=== PATIENT | male | born 1965 | race Caucasian/White ===

== ENCOUNTER 2017-02-17 12:19 | Day surgery (SDC) | payer OTHER ==
[2017-02-16 15:03] LABS: HEMATOCRIT 44.7 % (40.0-51.0); HEMOGLOBIN 14.9 g/dL (13.6-17.8)
[2017-02-16 15:23] LABS: BUN (BLOOD UREA NITROGEN) 7 MG/DL (6-23); CALCIUM, SERUM 8.6 MG/DL (8.5-10.4); CHLORIDE, SERUM 106 MMOL/L (96-112); CREATININE 0.81 MG/DL (0.70-1.30); GFR AFRICAN AMERICAN 118 ML/MIN (>=60); GFR NON AFRICAN AMERICAN 102 ML/MIN (>=60); GLUCOSE, SERUM 71 MG/DL (60-99); POTASSIUM, SERUM 4.8 MMOL/L (3.5-5.3); SODIUM, SERUM 141 MMOL/L (135-148)
[2017-02-16 15:24] LABS: CO2 (CARBON DIOXIDE) 30 MMOL/L (24-34)
--- NOTE | ~2017-02-17 | OP ---
[facility] [place] [id number] [place]. [address] NAME: MINH DUGGAN : 63 STATUS : [facility]#: [id number] AGE: 51 ADM/REG DATE : 02/17/17 MR#: [id number] REPORT SERV DATE: 02/17/17 DICTATED BY: JOSE ALEJANDRO SAAB III DATE: 02/17/17 REPORT STATUS : Draft TRANSCRIBED BY: MODL DATE: 02/17/17 DATE OF PROCEDURE: 02/17/2017 PREOPERATIVE DIAGNOSIS: Elevated PSA. POSTOPERATIVE DIAGNOSIS: Enlarged prostate. PROCEDURES: 1. Transrectal ultrasound. 2. Ultrasound guidance. 3. Needle biopsy of the prostate gland. SURGEON: Jose Alejandro Saab M.D. ANESTHESIA: MAC. SPECIMEN: Prostate biopsies x12. BLOOD LOSS: Minimal. INDICATION: Mr. Duggan is a 51-year-old white male who was referred to me with a PSA of 9.0. His prostate gland is suspicious on the left side with some ridging. Options were discussed with the patient. He voices understanding and wishes to proceed with transrectal ultrasound of the prostate with the needle biopsy. DESCRIPTION OF PROCEDURE: After consent was obtained, the patient was identified and was taken to the OR. He was placed in the left lateral decubitus position and MAC anesthesia was administered. The vb net developer inserted the rectal probe. The prostate gland was visualized. A three dimensional volume was 41 mL. There were a moderate amount of calcifications in the transitional zone bilaterally. The ultrasound guidance was activated and needle biopsy was performed. Two cores were obtained from each of the right and left base, mid gland, and apex. These were passed off as specimen. There was minimal bleeding noted. Hemorrhoidectomy roll was then inserted into the rectum. The patient was taken to phase 2 recovery in stable condition. PH/MODL Jose Alejandro Saab III, M.D. / [id number] CC: Jose Alejandro Saab III, M.D. [facility] [place] [id number] [place]. [address] NAME: MINH DUGGAN : 63 STATUS : [facility] PAT#: [id number] AGE: 51 ADM/REG DATE : 02/17/17 MR#: [id number] REPORT SERV DATE: 02/17/17 DICTATED BY: JOSE ALEJANDRO SAAB III DATE: 02/17/17 REPORT STATUS : Draft TRANSCRIBED BY: MODL DATE: 02/17/17 Pato Gil M.D.
[~2017-02-17 12:19] MED LIST: MONODOX50 MG PO; ZESTRIL20 MG PO
== END 2017-02-17 16:58 | disposition home or self-care (01) ==
LOC: SDC 12:19
PROVIDERS: Urology
PROC: 0V903ZX Drainage of Prostate, Percutaneous Approach, Diagnostic (ICD-10-PCS; principal; 2017-02-17 15:00)
DX: C61 Malignant neoplasm of prostate (principal); I10 Essential (primary) hypertension; L70.9 Acne, unspecified; Z87.891 Personal history of nicotine dependence; Z88.5 Allergy status to narcotic agent; Z79.899 Other long term (current) drug therapy; Z98.890 Other specified postprocedural states; Z85.820 Personal history of malignant melanoma of skin
CPT/HCPCS: 36415; 76872; 76942; 80048; 85014; 85018; 88305; 88341; 88342; 88344; 93005; J2250